=== PATIENT | female | born 1970 | race African-American/Black ===

== ENCOUNTER 2025-04-01 01:12 | Emergency (ER) | payer MEDICARE, MEDICAID ==
[~2025-04-01] VITALS: Ht 167.6 cm; Wt 49.9 kg
[2025-04-01] MEDS ORDERED: DIATR MEGLU/DIATRIZOATE SODIUM 30 ML BOTTLE (GASTROGRAPHIN) ONE (01:49)
[2025-04-01 03:09] VITALS: BP 102/53; TEMP 98.5; O2SAT 98
== END 2025-04-01 03:10 | disposition home or self-care (01) ==
LOC: ER 01:15
DX: K94.23 Gastrostomy malfunction (principal); I11.0 Hypertensive heart disease with heart failure; E11.9 Type 2 diabetes mellitus without complications
CPT/HCPCS: 99284; 43762; 74018; Q9963